=== PATIENT | male | born 1960 | race Caucasian/White ===

== ENCOUNTER 2023-01-27 18:08 | Observation (INO) | payer BC ==
[~2023-01-27] VITALS: Ht 177.8 cm; Wt 94.2 kg
[2023-01-27] MEDS ORDERED: METO1TAB33 PO ×2 (18:22→22:11)
[2023-01-27] MEDS ORDERED: ASPI81TA26 PO (18:22)
[2023-01-27] MEDS ORDERED: PANT40TA29 PO (18:22)
[2023-01-27] MEDS ORDERED: ROSU5TAB5 PO ×2 (18:22→22:11)
[2023-01-27 18:41] LABS: BASO % 0.3 % (0.0-1.0); EOS # 0.1 10^3/uL (0.0-0.5); EOS % 0.8 % (0.0-3.0); HEMATOCRIT 48.1 % (42.0-52.0); LYMPH # 1.9 10^3/uL (1.5-5.0); LYMPH % 26.6 % (24.0-44.0); MEAN CORPUSCULAR HEMOGLOBIN 28.7 pg (27.0-33.0); MEAN CORPUSCULAR HGB CONC 33.3 g/dl (32.0-36.5); MEAN CORPUSCULAR VOLUME 86.2 fl (80.0-96.0); MONO # 0.7 10^3/uL (0.0-0.8); MONO % 9.3 % (2.0-8.0); NEUTROPHILS # 4.5 10^3/uL (1.5-8.5); NEUTROPHILS % 62.7 % (36.0-66.0); PLATELET COUNT, AUTOMATED 204 10^3/uL (150-450); RED BLOOD COUNT 5.58 10^6/uL (4.30-6.10); WHITE BLOOD COUNT 7.2 10^3/uL (4.0-10.0)
[2023-01-27 19:16] LABS: CK-MB VALUE MASS 1.2 NG/ML (<3.6); LIPASE 35 U/L (12-53)
[2023-01-27 19:18] LABS: ALKALINE PHOSPHATASE 75 U/L (46-116); ALT/SGPT 28 U/L (7.0-40); AST/SGOT 15 U/L (<34); BILIRUBIN,DIRECT 0.2 MG/DL (<0.4); BILIRUBIN,TOTAL 0.7 MG/DL (0.3-1.2); BLOOD UREA NITROGEN 12 MG/DL (9-23); CARBON DIOXIDE LEVEL 25 MMOL/L (20-31); CHLORIDE LEVEL 107 MMOL/L (98-107); CPK CREATINE PHOSPHOKINASE 107 U/L (46-171); CREATININE FOR GFR 0.87 MG/DL (0.70-1.30); GLOMERULAR FILTRATION RATE > 60.0 (>49); GLUCOSE, FASTING 114 MG/DL (74-106); MB/CK RELATIVE INDEX 1.12 (< OR =4); POTASSIUM SERUM 4.4 MMOL/L (3.5-5.1); SODIUM LEVEL 142 MMOL/L (136-145); TOTAL PROTEIN 6.7 G/DL (5.7-8.2)
[2023-01-27] MEDS ORDERED: NS 1,000 ML IV ONE (19:55)
[2023-01-27] MEDS ORDERED: ASPIRIN 81MG CHEW TABLET PO ONE (20:10)
[2023-01-27] MEDS ORDERED: ROSUVASTATIN 10 MG TAB (CRESTOR) PO SCH (21:00)
[2023-01-27] MEDS ORDERED: METOPROLOL SUCC (TopROL XL) 100MG *XL* TAB PO SCH (21:00)
[2023-01-27] MEDS ORDERED: ACETAMINOPHEN TAB 650MG DOSE (2X325MG) PO PRN (21:50)
[2023-01-27] MEDS ORDERED: VITMTA PO (22:11)
[2023-01-27] MEDS ORDERED: VITA100093 PO (22:11)
[2023-01-27] MEDS ORDERED: PANT-23 PO (22:11)
[2023-01-27] MEDS ORDERED: ASPI-161 PO (22:11)
[2023-01-27] MEDS ORDERED: FERR1TAB8 PO (22:11)
[2023-01-27] MEDS ORDERED: HOME MED LIST COMPLETE! XX SCH (22:15)
[2023-01-27 22:22] LABS: RSV AMPLIFICATION NEGATIVE (NEGATIVE)
[2023-01-27 22:54] VITALS: BP 126/70
[2023-01-28 07:59] LABS: CHOLESTEROL RISK RATIO 3.01 (<5); HDL CHOLESTEROL 40.5 MG/DL (>40); LDL CHOLESTEROL 55.9 MG/DL (<100); NON-HDL-C 81.5 MG/DL
[2023-01-28 08:28] LABS: HEMOGLOBIN A1c 5.9 % (4.0-6.0)
[2023-01-28] MEDS ORDERED: FERROUS SULFATE 325MG TAB PO SCH (09:00)
[2023-01-28] MEDS ORDERED: PANTOPRAZOLE 40MG TAB (PROTONIX) PO SCH (09:00)
[2023-01-28] MEDS ORDERED: FONDAPARINUX SODIUM 2.5 MG/0.5 ML SYRINGE SC SCH (09:00)
[2023-01-28] MEDS ORDERED: ASPIRIN 81MG ENTERIC TABLET PO SCH (09:00)
[2023-01-28 13:10] VITALS: BP 144/80; TEMP 97.9; O2SAT 98
[2023-01-28] MEDS ORDERED: CLOPIDOGREL 300 MG TAB (PLAVIX) PO STA (15:20)
[2023-01-28] MEDS ORDERED: CLOP75TA2 PO (15:32)
[2023-01-28] MEDS ORDERED: ROSU20TA61 PO (15:38)
[2023-01-28 15:44] VITALS: BP 140/80; TEMP 96.9; O2SAT 96
[2023-01-29] MEDS ORDERED: CLOPIDOGREL 75 MG TAB PO SCH (09:00)
== END 2023-01-28 16:40 | disposition other institution (70) ==
LOC: M ED 18:08 → M ED INP 18:09 → ENRESERV 01-28 12:20 → M PCU 01-28 13:10
PROVIDERS: ADMIT Internal Medicine; ATTEND Internal Medicine
DX: I21.4 Non-ST elevation (NSTEMI) myocardial infarction (principal); I42.1 Obstructive hypertrophic cardiomyopathy; R74.8 Abnormal levels of other serum enzymes; E78.5 Hyperlipidemia, unspecified; I10 Essential (primary) hypertension; K21.9 Gastro-esophageal reflux disease without esophagitis; D50.9 Iron deficiency anemia, unspecified; Z98.61 Coronary angioplasty status; Z79.899 Other long term (current) drug therapy; Z79.82 Long term (current) use of aspirin
CPT/HCPCS: 36415; 71045; 80048; 80061; 80076; 82550; 82553; 83036; 83690; 84484; 85025; 87631; 93005; 93306; 96360; 96372; 99285; J1652